=== PATIENT | female | born 1995 | race Caucasian/White ===

== ENCOUNTER 2016-06-12 17:38 | Emergency (ER) | payer OTHER ==
--- NOTE | 2016-06-12 17:58 | CPEKG ---
Heart Rate: 106 RR Interval: 566 P-R Interval: 132 QRSD Interval: 98 QT Interval: 352 QTC Interval: 468 P [place]: 68 QRS [place]: 72 T Wave [place]: 17 EKG Severity - OTHERWISE NORMAL ECG - EKG Impression: SINUS TACHYCARDIA Electronically Signed By: Champ Bryan 12-Jun-2016 21:01:34
--- NOTE | 2016-06-12 18:04 | EDPHY ---
H & P Stated Complaint: dizzy/lightheaded/near syncope while at work today Time Seen by Provider: 06/12/16 17:50 - Personal History LMP (Females 10-55): Over 28 Days Ago Current Tetanus/Diphtheria Vaccine: Unsure Current Tetanus Diphtheria and Acellular Pertussis (TDAP): Unsure - Medical/Surgical History Hx Asthma: No Hx Chronic Respiratory Disease: No Hx Diabetes: No Hx Cardiac Disease: No Hx Renal Disease: No Hx Cirrhosis: No Hx Alcoholism: No Hx HIV/AIDS: No Hx Splenectomy or Spleen Trauma: No Other PMH: PMH: denies - Social History Smoking Status: Never smoked Constitutional: Initial Vital Signs Temperature (C) 36.7 C 06/12/16 17:44 Heart Rate 112 H 06/12/16 17:44 Respiratory Rate 16 06/12/16 17:44 Blood Pressure 173/84 H 06/12/16 17:44 O2 Sat (%) 99 06/12/16 17:44 O2 Delivery Mode Room Air Allergies/Adverse Reactions: No Known Allergies Allergy (Verified 06/12/16 17:44) Home Medications: Medication Instructions Recorded NK [No Known Home Meds] 03/09/16 Medical Decision Making ED Course/Re-evaluation: CHIEF COMPLAINT: Near-syncope HISTORY OF PRESENT ILLNESS: The patient is a 21 y/o female complaining of acute onset chest tightness and near-syncope while walking at work today. She had a similar episode in March that caused a syncope. Today she was walking down the hallway of [facility] [employer] where she works when she suddenly experienced palpitations , chest tightness, and lightheadedness. She sat down and felt better after a few moments, but upon standing the symptoms returned. Her coworkers described her as flushed and measured an elevated BP and HR. She denies recent illness, new medications, or recent long travel. She has no familial cardiac history she is aware of. She denies chance of because she has an IUD. REVIEW OF SYSTEMS: A 10 point review of systems was performed and is negative with the exception of the elements mentioned in the history of present illness. PHYSICAL EXAM: General Appearance: Alert, well hydrated, appropriate, and non-toxic appearing. Head: Atraumatic without scalp tenderness or obvious injury Eyes: Pupils equal, round, reactive to light and accommodation, EOMI, no trauma , no injection. Ears: Clear bilaterally, no perforation, normal landmarks Nose: Atraumatic, no rhinorrhea, clear. Throat: There is no erythema or exudates, no lesions, normal tonsils, mucus membranes moist. Neck: Supple, 2+ carotid upstroke, non-tender, no lymphadenopathy. Respiratory: No retractions, no distress, no wheezes, and no accessory muscle use. Lungs are clear to auscultation bilaterally. Cardiovascular: Regular rate and rhythm, no murmurs, rubs, or gallops. Bilateral carotid, radial, dorsalis pedis, and posterior tibial pulses intact. Good capillary refill all extremities. Gastrointestinal: Abdomen is soft, non-tender, non-distended, no masses, no rebound, no guarding, no peritoneal signs. Musculoskeletal: Normal active ROM of all extremities, atraumatic. Neurological: Alert, appropriate, and interactive. The patient has normal DTRs and non-focal cranial nerves, motor, sensory, and cerebellar exam. Skin: No rashes, good turgor, no nodules on palpation. PAST MEDICAL HISTORY: IUD placed PAST SURGICAL HISTORY: Denies SOCIAL HISTORY: Works on [employer] at [employer] DIAGNOSTICS/PROCEDURES/CRITICAL CARE TIME: The 12 lead EKG was interpreted by myself. EKG shows sinus tachycardiac rate 106. See hard copy and/or "tracemaster" electronic copy for interpretation. ECHOCARDIOGRAPHY: Indication: chest pain, near-syncope Procedure: Limited transthoracic 2D echocardiogram. A limited transthoracic echocardiogram was performed by the echocardiogram technologists and interpreted by Dr. Peter Nolen. Limited transthoracic echocardiogram: The pericardium was visualized and found to be negative for pericardial fluid. Cardiac activity and EF was normal. No obvious structural or valve abnormalities. Impression: normal DIFFERENTIAL DIAGNOSIS: The differential diagnosis for the patient's syncope included but was not limited to paroxysmal SVT, vasovagal syncope, arrhythmia, dehydration, cardiogenic causes, neurogenic causes, and blood loss. MEDICAL DECISION MAKING: This is a healthy 21 y/o female presenting to the ED after an episode of lightheadedness, chest tightness, and palpitations resulting in near syncope. Her vitals directly after the episode showed elevated HR and BP and she was apparently flushed. This sounds more like an episode of SVT than vasovagal syncope. She had one similar episode in March that she was not evaluated by a classroom instructional aide for. She is asymptomatic upon assessment with no remarkable findings on exam. IV established. Labs drawn including CBC, CHEM, BHCG, Mg, troponin, d-dimer. Patient placed on call center professional. Echocardiogram ordered. EKG shows sinus tachycardia at 106. Echo is normal. Labs are largely unremarkable, though her CO2 is decreased at 21 which may indicate some hyperventilation. She will be referred to Dr. Nolen for follow up to get a Holter monitor. Return precautions given. She is comfortable with this plan. - Data Points Laboratory Results: Laboratory Results 06/12/16 18:10 06/12/16 18:10 06/12/16 18:10 WBC 6.85 10^3/uL (3.80-9.50) RBC 4.61 10^6/uL (4.18-5.33) Hgb 13.9 g/dL (12.6-16.3) Hct 39.6 % (38.0-47.0) MCV 85.9 fL (81.5-99.8) MCH 30.2 pg (27.9-34.1) MCHC 35.1 g/dL (32.4-36.7) RDW 12.6 % (11.5-15.2) Plt Count 261 10^3/uL (150-400) MPV 9.4 fL (8.7-11.7) Neut % (Auto) 58.4 % (39.3-74.2) Lymph % (Auto) 30.1 % (15.0-45.0) [place] % (Auto) 9.3 % (4.5-13.0) Eos % (Auto) 1.6 % (0.6-7.6) Baso % (Auto) 0.6 % (0.3-1.7) Nucleat RBC Rel Count 0.0 % (0.0-0.2) Absolute Neuts (auto) 4.00 10^3/uL (1.70-6.50) Absolute Lymphs (auto) 2.06 10^3/uL (1.00-3.00) Absolute Monos (auto) 0.64 10^3/uL (0.30-0.80) Absolute Eos (auto) 0.11 10^3/uL (0.03-0.40) Absolute Basos (auto) 0.04 10^3/uL (0.02-0.10) Absolute Nucleated RBC 0.00 10^3/uL (0-0.01) Immature Gran % 0.0 % (0.0-1.1) Immature Gran # 0.00 10^3/uL (0.00-0.10) D-Dimer 0.34 ug/mLFEU (0.00-0.50) Sodium 139 mEq/L (134-144) Potassium 3.9 mEq/L (3.5-5.2) Chloride 105 mEq/L (97-110) Carbon Dioxide 21 L mEq/l (22-31) Anion Gap 13 mEq/L (8-16) BUN 11 mg/dL (7-23) Creatinine 0.7 mg/dL (0.6-1.0) Estimated GFR > 60 Glucose 87 mg/dL (70-100) Calcium 9.4 mg/dL (8.5-10.4) Magnesium 2.0 mg/dL (1.6-2.3) Troponin I < 0.012 ng/mL (0-0.034) Beta HCG, Qual NEGATIVE Departure - Departure Clinical Impression: Near syncope, Palpitations, possible paroxysmal SVT Instructions: Near Syncope (ED), Palpitations (ED), Supraventricular Tachycardia (ED) Additional Instructions: Follow up with Dr. Nolen's office on Tuesday to get a Holter monitor. Return to the ED for recurrent symptoms. Referrals: Peter Nolen MD [Medical Doctor] - As per Instructions Report Scribed for: Champ Bryan Report Scribed by: Johana Soto Date of Report: 06/12/16 Time of Report: 18:53
[2016-06-12 18:23] LABS: ADD DIFF? NO; ADD MORPH? NO; ADD SCAN? NO; ATYPICAL LYMPHOCYTE FLAG 0 (0-99); FRAGMENT RBC FLAG 0 (0-99); HEMATOCRIT 39.6 % (38.0-47.0); HEMOGLOBIN 13.9 g/dL (12.6-16.3); LEFT SHIFT FLG 0 (0-99); LIPEMIA HEMOLYSIS FLAG 90 (0-99); MEAN CELL HEMOGLOBIN 30.2 pg (27.9-34.1); MEAN CELL HEMOGLOBIN CONCENTR. 35.1 g/dL (32.4-36.7); MEAN CELL VOLUME 85.9 fL (81.5-99.8); MEAN PLATELET VOLUME 9.4 fL (8.7-11.7); PLATELET CLUMPS FLAG 0 (0-99); PLATELET COUNT 261 10^3/uL (150-400); RED BLOOD CELL COUNT 4.61 10^6/uL (4.18-5.33); RED CELL DISTRIBUTION WIDTH 12.6 % (11.5-15.2)
[2016-06-12 18:35] LABS: ANION GAP 13 mEq/L (8-16); CALCIUM 9.4 mg/dL (8.5-10.4); CARBON DIOXIDE 21 mEq/l (22-31); CHLORIDE 105 mEq/L (97-110); CREATININE 0.7 mg/dL (0.6-1.0); GLOMERULAR FILTRATION RATE > 60; GLUCOSE 87 mg/dL (70-100); POTASSIUM 3.9 mEq/L (3.5-5.2); SODIUM 139 mEq/L (134-144)
[2016-06-12 18:47] LABS: TROPONIN I < 0.012 ng/mL (0-0.034)
[2016-06-12 19:22] VITALS: BP 145/80; PULSE 102; RESP 18; TEMP 97.7; O2SAT 97
--- NOTE | 2016-06-13 08:13 | ECHO ---
[id number] + + [address] : : [place] [address] : : [phone] + Adult Echocardiographic Report + --+ :Name: GIRISH MICHAEL LStudy Date: 06/12/2016 06:44 PM : : Hospital Admission Number: [id number] Location: ER: :: 1995 Gender: Female Height: 69 in : :Age: 21 yrs Race: WH Weight: 145 lb : :Reason For Study: syncope : : BSA: 1.8 meters2 : :History: syncope : + --+ MMode/2D Measurements & Calculations IVSd: 0.69 cm LVIDd: 4.7 cm FS: 40.0 % Ao root diam: LVPWd: 0.86 cm LVIDs: 2.8 cm EDV(Teich): 2.5 cm 103.9 ml LA dimension: ESV(Teich): 2.9 cm 30.6 ml EF(Teich): 70.5 % LVLd ap4: 8.4 cm SV(MOD-sp4): EDV(MOD-sp4): 104.0 ml 147.0 ml LVLs ap4: 7.3 cm ESV(MOD-sp4): 43.0 ml EF(MOD-sp4): 70.7 % Normal Measurement Values: + + :LVIDd (3.5-5.7cm) IVSd (0.6-1.1cm) LVPWd (0.6-1.1cm) Aortic Root (2.0-3.7cm)Left Atrium (1.5-4.0cm): :LV Vol(d) (76-115ml) LV Vol(s) (29-48ml) Ejec Fraction (50-65%)PV Kamlesh (0.6- 1.2m/s) TV Kamlesh (0.4-1.0m/s) : :MV E Kamlesh (0.8-1.0m/s)MV A Kamlesh (0.3-1.0m/s)LVOT Kamlesh (0.7-1.2m/s) Asc Ao Kamlesh ( 0.9-1.8m/s) : + + Doppler Measurements & Calculations MV E max kamlesh: Ao V2 max: LV V1 max: PA V2 max: 95.8 cm/sec 172.0 cm/sec 113.0 cm/sec 119.0 cm/sec MV A max kamlesh: Ao max PG: LV V1 max PG: PA max P.1 cm/sec 11.8 mmHg 5.1 mmHg 5.7 mmHg MV E/A: 1.4 MV dec time: 0.15 sec Left Ventricle The left ventricle is normal in size and function. There is normal left ventricular wall thickness. Ejection Fraction = 65-70%. Normal diastolic function. E/e' of 7.0. No regional wall motion abnormalities noted. Right Ventricle The right ventricle is normal in size and function. TAPSE normal at 2.47cm. Atria The left atrial size is normal. Right atrial size is normal. The interatrial septum is intact with no evidence for an atrial septal defect. Mitral Valve The mitral valve is normal in structure and function. There is no evidence of mitral valve prolapse. There is no mitral valve stenosis. There is trace mitral regurgitation. Tricuspid Valve The tricuspid valve is normal in structure and function. There is no tricuspid stenosis. No tricuspid regurgitation. Aortic Valve The aortic valve is normal in structure and function. There is no aortic stenosis. There is no aortic insufficiency. Pulmonic Valve The pulmonic valve is normal in structure and function. There is no pulmonic valvular regurgitation. Great Vessels The aortic root is normal size. Pericardium/Pleural There is no pericardial effusion. The pericardium appears normal. There is no pleural effusion. Conclusion A two-dimensional transthoracic echocardiogram with M-mode and Doppler was performed. Ejection Fraction = 65-70%. There is trace mitral regurgitation. There is no pleural effusion. No regional wall motion abnormalities noted. The right ventricle is normal in size and function. The left atrial size is normal. Right atrial size is normal. The mitral valve is normal in structure and function. There is no evidence of mitral valve prolapse. No tricuspid regurgitation. The aortic root is normal size. The pericardium appears normal. Final Reading Physician: Peter Nolen electronically signed on 06/13/2016 08:12 AM Ordering Physician: Champ Bryan Performed By: Gianna Mcclellan
== END 2016-06-12 19:21 | disposition home or self-care (01) ==
DX: R55 Syncope and collapse (principal); R00.2 Palpitations